=== PATIENT | female | born 1940 | race Caucasian/White ===

== ENCOUNTER 2019-01-28 09:19 | Inpatient (IN) | payer MEDICARE, OTHER ==
--- NOTE | 2019-01-28 09:24 | EDM.PDOC ---
ED HPI GENERAL MEDICAL PROBLEM - General Stated Complaint: SOB Time Seen by Provider: 01/28/19 09:23 Source of Information: Reports: Patient - History of Present Illness INITIAL COMMENTS - FREE TEXT/NARRATIVE: HISTORY AND PHYSICAL: History of present illness: [Patient presents to emergency room by private vehicle with chief complaint of shortness of breath ]Patient is as shortness of breath increasing in severity over the last 2-3 days , states that she is somewhat short of breath at baseline however it has been increasing she is in no distress no diaphoresis no chest pain headache dizziness or palpitation no bowel or urine symptoms Review of systems: As per history of present illness and below otherwise all systems reviewed and negative. Past medical history: As per history of present illness and as reviewed below otherwise noncontributory. Surgical history: As per history of present illness and as reviewed below otherwise noncontributory. Social history: No reported history of drug or alcohol abuse. Family history: As per history of present illness and as reviewed below otherwise noncontributory. Physical exam: HEENT: Atraumatic, normocephalic, pupils reactive, negative for conjunctival pallor or scleral icterus, mucous membranes moist, throat clear, neck supple, nontender, trachea midline. Lungs: Clear to auscultation, breath sounds equal bilaterally in the upper lobes however right lower lobe as decreased breath sounds and fine crackle, chest nontender. Heart: S1S2, regular, negative for clicks, rubs, or JVD. Abdomen: Soft, nondistended, nontender. Negative for masses or hepatosplenomegaly. Negative for costovertebral tenderness. Pelvis: Stable nontender. Genitourinary: Deferred. Rectal: Deferred. Extremities: Atraumatic, negative for cords or calf pain. Neurovascular unremarkable. Neuro: Awake, alert, oriented. Cranial nerves II through XII unremarkable. Cerebellum unremarkable. Motor and sensory unremarkable throughout. Exam nonfocal. Diagnostics: [CBC CMP troponin BN peptide Chest 1 view EKG ] Therapeutics: [ normal saline DuoNeb Solu-Medrol 125 mg IV Aspirin 324 mg chewable lasix 40 mg IV 1 g Rocephin IV Azithromycin 500 mg IV Patient admitted to Dr. Carmichael ] Impression: Hypoxia Right lower lobe pneumonia Moderate right effusion [ short of breath ] Definitive disposition and diagnosis as appropriate pending reevaluation and review of above. - Related Data Allergies Allergy/AdvReac Type Severity Reaction Status Date / Time No Known Allergies Allergy Verified 01/28/19 09:24 Home Meds: Home Meds Allopurinol [Zyloprim] 100 mg PO DAILY 01/28/19 [History] Aspirin 81 mg PO DAILY 01/28/19 [History] Blood Sugar Diagnostic [Onetouch Ultra Blue Test Strp] 1 dose TOP ASDIRECTED [History] Calcium Carbonate/Vitamin D3 [Calcium 1,000 + D3 Caplet] 1 tab PO DAILY [History] Furosemide [Lasix] 40 mg PO BID 01/28/19 [History] Glimepiride [Amaryl] 2 mg PO DAILY 01/28/19 [History] Levothyroxine Sodium 88 mcg PO DAILY 01/28/19 [History] Lisinopril 10 mg PO DAILY 01/28/19 [History] Lovastatin 100 mg PO DAILY 01/28/19 [History] Multivit-Min/FA/Lycopene/Lut [Abc Plus Tablet] 1 tab PO DAILY 01/28/19 [History] ED ROS GENERAL - Review of Systems Review Of Systems: See Below ED EXAM, GENERAL - Physical Exam Exam: See Below Course - Vital Signs Last Recorded V/S: Last Vital Signs Temp 96.3 F 01/28/19 09:25 Pulse 107 H 01/28/19 09:25 Resp 22 H 01/28/19 09:25 BP 152/88 H 01/28/19 09:25 Pulse Ox 94 L 01/28/19 09:30 - Orders/Labs/Meds Orders: Active Orders 24 hr Category Date Time Status EKG Documentation Completion [RC] STAT Care 01/28/19 09:22 Active RT Aerosol Therapy [RC] ASDIRECTED Care 01/28/19 09:30 Active UA RFX VANE AND CULT IF INDIC [URIN] Stat Lab 01/28/19 09:22 Ordered Azithromycin [Zithromax] 500 mg Med 01/28/19 11:07 Ordered Sodium Chloride 0.9% [Normal Saline] 250 ml IV ONETIME Sodium Chloride 0.9% [Normal Saline] 1,000 ml Med 01/28/19 09:30 Active IV STAT cefTRIAXone [Rocephin] Med 01/28/19 11:07 Once 1 gm IM ONETIME ONE Medication Orders Sodium Chloride (Normal Saline) 1,000 mls @ 125 mls/hr IV STAT GLORIA Last Admin: 01/28/19 09:39 Dose: 125 mls/hr Labs: Laboratory Tests 01/28/19 01/28/19 01/28/19 Range/Units 09:30 09:30 09:30 WBC 13.91 H (4.0-11.0) K/uL RBC 6.57 H (4.30-5.90) M/uL Hgb 19.2 H (12.0-16.0) g/dL Hct 58.5 H (36.0-46.0) % MCV 89.0 (80.0-98.0) fL MCH 29.2 (27.0-32.0) pg MCHC 32.8 (31.0-37.0) g/dL RDW Std Deviation 58.0 (28.0-62.0) fl RDW Coeff of Kelsey 19 H (11.0-15.0) % Plt Count 218 (150-400) K/uL MPV 9.40 (7.40-12.00) fL Neut % (Auto) 76.4 (48.0-80.0) % Lymph % (Auto) 14.5 L (16.0-40.0) % [place] % (Auto) 8.4 (0.0-15.0) % Eos % (Auto) 0.5 (0.0-7.0) % Baso % (Auto) 0.2 (0.0-1.5) % Neut # (Auto) 10.6 H (1.4-5.7) K/uL Lymph # (Auto) 2.0 (0.6-2.4) K/uL [place] # (Auto) 1.2 H (0.0-0.8) K/uL Eos # (Auto) 0.1 (0.0-0.7) K/uL Baso # (Auto) 0.0 (0.0-0.1) K/uL Nucleated RBC % 0.0 /100WBC Nucleated RBCs # 0 K/uL INR 2.14 Sodium 133 L (136-145) mmol/L Potassium 4.9 (3.5-5.1) mmol/L Chloride 95 L (98-107) mmol/L Carbon Dioxide 27.2 (21.0-32.0) mmol/L BUN 33 H (7.0-18.0) mg/dL Creatinine 1.9 H (0.6-1.0) mg/dL Est Cr Clr Drug Dosing 21.96 mL/min Estimated GFR (MDRD) 25.6 ml/min Glucose 89 (74-106) mg/dL Calcium 9.6 (8.5-10.1) mg/dL Total Bilirubin 1.3 H (0.2-1.0) mg/dL AST 41 H (15-37) IU/L ALT 36 (14-63) IU/L Alkaline Phosphatase 99 (46-116) U/L Troponin I < 0.050 (0.000-0.056) ng/mL B-Natriuretic Peptide (<100) PG/ML Total Protein 7.2 (6.4-8.2) g/dL Albumin 3.2 L (3.4-5.0) g/dL Globulin 4.0 (2.6-4.0) g/dL Albumin/Globulin Ratio 0.8 L (0.9-1.6) 01/28/19 Range/Units 09:30 WBC (4.0-11.0) K/uL RBC (4.30-5.90) M/uL Hgb (12.0-16.0) g/dL Hct (36.0-46.0) % MCV (80.0-98.0) fL MCH (27.0-32.0) pg MCHC (31.0-37.0) g/dL RDW Std Deviation (28.0-62.0) fl RDW Coeff of Kelsey (11.0-15.0) % Plt Count (150-400) K/uL MPV (7.40-12.00) fL Neut % (Auto) (48.0-80.0) % Lymph % (Auto) (16.0-40.0) % [place] % (Auto) (0.0-15.0) % Eos % (Auto) (0.0-7.0) % Baso % (Auto) (0.0-1.5) % Neut # (Auto) (1.4-5.7) K/uL Lymph # (Auto) (0.6-2.4) K/uL [place] # (Auto) (0.0-0.8) K/uL Eos # (Auto) (0.0-0.7) K/uL Baso # (Auto) (0.0-0.1) K/uL Nucleated RBC % /100WBC Nucleated RBCs # K/uL INR Sodium (136-145) mmol/L Potassium (3.5-5.1) mmol/L Chloride (98-107) mmol/L Carbon Dioxide (21.0-32.0) mmol/L BUN (7.0-18.0) mg/dL Creatinine (0.6-1.0) mg/dL Est Cr Clr Drug Dosing mL/min Estimated GFR (MDRD) ml/min Glucose (74-106) mg/dL Calcium (8.5-10.1) mg/dL Total Bilirubin (0.2-1.0) mg/dL AST (15-37) IU/L ALT (14-63) IU/L Alkaline Phosphatase (46-116) U/L Troponin I (0.000-0.056) ng/mL B-Natriuretic Peptide 361 H (<100) PG/ML Total Protein (6.4-8.2) g/dL Albumin (3.4-5.0) g/dL Globulin (2.6-4.0) g/dL Albumin/Globulin Ratio (0.9-1.6) Meds: Medications Generic Name Dose Route Start Last Admin Trade Name Freq PRN Reason Stop Dose Admin Sodium Chloride 1,000 mls @ 125 mls/hr 01/28/19 09:30 01/28/19 09:39 Normal Saline IV 125 mls/hr STAT GLORIA Administration Discontinued Medications Generic Name Dose Route Start Last Admin Trade Name Freq PRN Reason Stop Dose Admin Albuterol/Ipratropium 3 ml 01/28/19 09:29 01/28/19 09:41 Duoneb 3.0-0.5 Mg/3 Ml NEB 01/28/19 09:30 3 ml ONETIME ONE Administration Aspirin 324 mg 01/28/19 09:29 01/28/19 09:40 Aspirin PO 01/28/19 09:30 324 mg ONETIME ONE Administration Furosemide 40 mg 01/28/19 09:32 Lasix IVPUSH 01/28/19 09:33 NOW ONE Furosemide 20 mg 01/28/19 09:35 01/28/19 09:52 Lasix IVPUSH 01/28/19 09:36 20 mg NOW ONE Administration Methylprednisolone Sodium Succinate 125 mg 01/28/19 09:29 01/28/19 09:42 Solu-Medrol IVPUSH 01/28/19 09:30 125 mg ONETIME ONE Administration Departure - Departure Time of Disposition: 11:09 Disposition: Admitted As Inpatient 66 Condition: Fair Clinical Impression: Pneumonia, Pleural effusion, Hypoxia - Discharge Information Referrals: Yony Conklin MD [Primary Care Provider] - - My Orders Last 24 Hours: My Active Orders 01/28/19 09:22 EKG Documentation Completion [RC] STAT UA RFX VANE AND CULT IF INDIC [URIN] Stat 01/28/19 09:30 RT Aerosol Therapy [RC] ASDIRECTED Sodium Chloride 0.9% [Normal Saline] 1,000 ml IV STAT 01/28/19 11:07 Azithromycin [Zithromax] 500 mg Sodium Chloride 0.9% [Normal Saline] 250 ml IV ONETIME cefTRIAXone [Rocephin] 1 gm IM ONETIME ONE - Assessment/Plan Last 24 Hours: My Active Orders 01/28/19 09:22 EKG Documentation Completion [RC] STAT UA RFX VANE AND CULT IF INDIC [URIN] Stat 01/28/19 09:30 RT Aerosol Therapy [RC] ASDIRECTED Sodium Chloride 0.9% [Normal Saline] 1,000 ml IV STAT 01/28/19 11:07 Azithromycin [Zithromax] 500 mg Sodium Chloride 0.9% [Normal Saline] 250 ml IV ONETIME cefTRIAXone [Rocephin] 1 gm IM ONETIME ONE
[2019-01-28] MEDS ORDERED: methylPREDNISolone Sodium Succinate 125 MG/2 ML SDV IVPUSH ONE (09:29)
[2019-01-28] MEDS ORDERED: Aspirin 81 MG Tab.Chew PO ONE (09:29)
[2019-01-28] MEDS ORDERED: Albuterol/Ipratropium 3.0-0.5 MG/3 ML Neb Soln NEB ONE (09:29)
[2019-01-28] MEDS ORDERED: Sodium Chloride 0.9% 1,000 ML IV SCH (09:30)
[2019-01-28] MEDS ORDERED: Furosemide 40 MG/4 ML VIAL IVPUSH ONE ×3 (09:32→11:59)
[2019-01-28 10:16] LABS: CHLORIDE,CL 95 mmol/L (98-107); SODIUM,NA 133 mmol/L (136-145)
--- NOTE | 2019-01-28 10:22 | CR ---
EXAMINATION: Portable chest radiograph. HISTORY: Shortness of breath. FINDINGS: The trachea is midline. The heart is borderline in size for technique. The cardiomediastinal silhouette is within normal limits. There is a small to moderate right pleural effusion with adjacent atelectasis and/or infiltrate. No pneumothorax. Osseous structures appear unremarkable. IMPRESSION: 1. Small to moderate right pleural effusion.
[2019-01-28] MEDS ORDERED: Azithromycin 500 MG in Sodium Chloride 0.9% 250 ML IV ONE ×2 (11:07→11:31)
[2019-01-28] MEDS ORDERED: cefTRIAXone 1 GM Vial IM ONE (11:07)
--- NOTE | 2019-01-28 11:56 | PCM.HP ---
H&P History of Present Illness - General Date of Service: 01/28/19 Admit Problem/Dx: Admission Diagnosis/Problem Admission Diagnosis/Problem Pneumonia - History of Present Illness Initial Comments - Free Text/Narative: The patient is a 78-year-old female presented to the ER with shortness of breath for the past few days. She denies any history of asthma, COPD, CHF, clots. She also notes increased swelling in her feet. She says she usually has baseline swelling in her feet for which she takes Lasix, but it's gotten worse over the past few days. She denies orthopnea, cough, fever, chest pain, nausea, vomiting. In the ER, labs showed an elevated white count, elevated creatinine a BNP of 361, and negative troponin. A chest x-ray showed small to moderate pleural effusion on the right with adjacent atelectasis and/or infiltrate. In the ER, she was satting 68% on RA and improved to 94% on 10L nonrebreather. In the ER she was given full dose aspirin, DuoNeb treatment, azithromycin, Rocephin 20 of Lasix dose of Solu-Medrol and started on IV fluids. - Related Data Allergies/Adverse Reactions: Allergies Allergy/AdvReac Type Severity Reaction Status Date / Time No Known Allergies Allergy Verified 01/28/19 09:24 Home Medications: Home Meds Allopurinol [Zyloprim] 100 mg PO DAILY 01/28/19 [History] Ascorbic Acid [Vitamin C with Elicia Hips] 1,000 mg PO BEDTIME 01/28/19 [History] Aspirin 81 mg PO DAILY 01/28/19 [History] Blood Sugar Diagnostic [Onetouch Ultra Blue Test Strp] 1 dose TOP ASDIRECTED [History] Calcium Carbonate/Vitamin D3 [Calcium 1,000 + D3 Caplet] 1 tab PO DAILY [History] Furosemide [Lasix] 40 mg PO BID 01/28/19 [History] Glimepiride [Amaryl] 2 mg PO BID 01/28/19 [History] Levothyroxine Sodium 88 mcg PO DAILY 01/28/19 [History] Lisinopril 10 mg PO DAILY 01/28/19 [History] Lovastatin 40 mg PO BEDTIME 01/28/19 [History] Multivit-Min/FA/Lycopene/Lut [Abc Plus Tablet] 1 tab PO DAILY 01/28/19 [History] Patient's Own Medication [Ptom] 1 cap PO DAILY 01/28/19 [History] Patient's Own Medication [Ptom] 2 cap PO BEDTIME 01/28/19 [History] Past Medical History HEENT History: Reports: Cataract Cardiovascular History: Reports: High Cholesterol, Hypertension Respiratory History: Reports: None Gastrointestinal History: Reports: None Genitourinary History: Reports: UTI, Recurrent, Other (See Below) Other Genitourinary History: Decreased GF, asymptomatic hyperuricemia [employer] History: Reports: None Musculoskeletal History: Reports: None Neurological History: Reports: None Psychiatric History: Reports: None Endocrine/Metabolic History: Reports: Diabetes, Type II, Hypothyroidism, Obesity /BMI 30+, Other (See Below) Other Endocrine/Metabolic History: Dyslipidemia Hematologic History: Reports: None Immunologic History: Reports: None Oncologic (Cancer) History: Reports: None Dermatologic History: Reports: Other (See Below) Other Dermatologic History: venous insufficiency of both lower extremities, stasis dermatitis of both legs, pre-ulcerative corn or callous, peripheral edema , artierial insufficency - Past Surgical History Head Surgeries/Procedures: Reports: None HEENT Surgical History: Reports: Tonsillectomy Cardiovascular Surgical History: Reports: None Respiratory Surgical History: Reports: None GI Surgical History: Reports: Appendectomy, Colonoscopy Female Surgical History: Reports: Breast Biopsy Endocrine Surgical History: Reports: None Neurological Surgical History: Reports: None Musculoskeletal Surgical History: Reports: None Oncologic Surgical History: Reports: None Dermatological Surgical History: Reports: None Social & Family History - Family History Family Medical History: Noncontributory - Tobacco Use Smoking Status *Q: Former Smoker Used Tobacco, but Quit: Yes Month/Year Tobacco Last Used: 2002 - Caffeine Use Caffeine Use: Reports: None - Recreational Drug Use Recreational Drug Use: No H&P Review of Systems - Review of Systems: Review Of Systems: See Below General: Reports: Decreased Appetite. Denies: Fever, Chills HEENT: Reports: No Symptoms Pulmonary: Reports: Shortness of Breath. Denies: Cough Cardiovascular: Reports: Edema. Denies: Chest Pain, Palpitations, Orthopnea Gastrointestinal: Reports: No Symptoms Genitourinary: Reports: No Symptoms Musculoskeletal: Reports: No Symptoms Skin: Reports: No Symptoms Psychiatric: Reports: No Symptoms Neurological: Reports: No Symptoms Hematologic/Lymphatic: Reports: No Symptoms Immunologic: Reports: No Symptoms Exam - Exam Exam: See Below - Vital Signs Vital Signs: Last Vital Signs Temp 96.3 F 01/28/19 09:25 Pulse 107 H 01/28/19 09:25 Resp 22 H 01/28/19 09:25 BP 152/88 H 01/28/19 09:25 Pulse Ox 94 L 01/28/19 09:30 Weight: 111.5 kg - Exam Quality Assessment: Supplemental Oxygen General: Alert, Oriented, Cooperative HEENT: Conjunctiva Clear, EOMI, Posterior Pharynx Clear, Pupils Equal, Pupils Reactive Neck: Supple, Trachea Midline Lungs: Decreased Breath Sounds. No: Crackles, Wheezing Cardiovascular: Regular Rhythm, Tachycardia GI/Abdominal Exam: Normal Bowel Sounds, Soft, Non-Tender, No Distention Extremities: Pedal Edema (with erythema) Skin: Warm, Dry Neuro Extensive - Mental Status: Alert, Oriented x3 Psychiatric: Alert, Normal Affect, Normal Mood - Patient Data Lab Results Last 24 hrs: Laboratory Results - last 24 hr 01/28/19 01/28/19 01/28/19 Range/Units 09:30 09:30 09:30 WBC 13.91 H (4.0-11.0) K/uL RBC 6.57 H (4.30-5.90) M/uL Hgb 19.2 H (12.0-16.0) g/dL Hct 58.5 H (36.0-46.0) % MCV 89.0 (80.0-98.0) fL MCH 29.2 (27.0-32.0) pg MCHC 32.8 (31.0-37.0) g/dL RDW Std Deviation 58.0 (28.0-62.0) fl RDW Coeff of Kelsey 19 H (11.0-15.0) % Plt Count 218 (150-400) K/uL MPV 9.40 (7.40-12.00) fL Neut % (Auto) 76.4 (48.0-80.0) % Lymph % (Auto) 14.5 L (16.0-40.0) % [place] % (Auto) 8.4 (0.0-15.0) % Eos % (Auto) 0.5 (0.0-7.0) % Baso % (Auto) 0.2 (0.0-1.5) % Neut # (Auto) 10.6 H (1.4-5.7) K/uL Lymph # (Auto) 2.0 (0.6-2.4) K/uL [place] # (Auto) 1.2 H (0.0-0.8) K/uL Eos # (Auto) 0.1 (0.0-0.7) K/uL Baso # (Auto) 0.0 (0.0-0.1) K/uL Nucleated RBC % 0.0 /100WBC Nucleated RBCs # 0 K/uL INR 2.14 Sodium 133 L (136-145) mmol/L Potassium 4.9 (3.5-5.1) mmol/L Chloride 95 L (98-107) mmol/L Carbon Dioxide 27.2 (21.0-32.0) mmol/L BUN 33 H (7.0-18.0) mg/dL Creatinine 1.9 H (0.6-1.0) mg/dL Est Cr Clr Drug Dosing 21.96 mL/min Estimated GFR (MDRD) 25.6 ml/min Glucose 89 (74-106) mg/dL Calcium 9.6 (8.5-10.1) mg/dL Total Bilirubin 1.3 H (0.2-1.0) mg/dL AST 41 H (15-37) IU/L ALT 36 (14-63) IU/L Alkaline Phosphatase 99 (46-116) U/L Troponin I < 0.050 (0.000-0.056) ng/mL B-Natriuretic Peptide (<100) PG/ML Total Protein 7.2 (6.4-8.2) g/dL Albumin 3.2 L (3.4-5.0) g/dL Globulin 4.0 (2.6-4.0) g/dL Albumin/Globulin Ratio 0.8 L (0.9-1.6) 01/28/19 Range/Units 09:30 WBC (4.0-11.0) K/uL RBC (4.30-5.90) M/uL Hgb (12.0-16.0) g/dL Hct (36.0-46.0) % MCV (80.0-98.0) fL MCH (27.0-32.0) pg MCHC (31.0-37.0) g/dL RDW Std Deviation (28.0-62.0) fl RDW Coeff of Kelsey (11.0-15.0) % Plt Count (150-400) K/uL MPV (7.40-12.00) fL Neut % (Auto) (48.0-80.0) % Lymph % (Auto) (16.0-40.0) % [place] % (Auto) (0.0-15.0) % Eos % (Auto) (0.0-7.0) % Baso % (Auto) (0.0-1.5) % Neut # (Auto) (1.4-5.7) K/uL Lymph # (Auto) (0.6-2.4) K/uL [place] # (Auto) (0.0-0.8) K/uL Eos # (Auto) (0.0-0.7) K/uL Baso # (Auto) (0.0-0.1) K/uL Nucleated RBC % /100WBC Nucleated RBCs # K/uL INR Sodium (136-145) mmol/L Potassium (3.5-5.1) mmol/L Chloride (98-107) mmol/L Carbon Dioxide (21.0-32.0) mmol/L BUN (7.0-18.0) mg/dL Creatinine (0.6-1.0) mg/dL Est Cr Clr Drug Dosing mL/min Estimated GFR (MDRD) ml/min Glucose (74-106) mg/dL Calcium (8.5-10.1) mg/dL Total Bilirubin (0.2-1.0) mg/dL AST (15-37) IU/L ALT (14-63) IU/L Alkaline Phosphatase (46-116) U/L Troponin I (0.000-0.056) ng/mL B-Natriuretic Peptide 361 H (<100) PG/ML Total Protein (6.4-8.2) g/dL Albumin (3.4-5.0) g/dL Globulin (2.6-4.0) g/dL Albumin/Globulin Ratio (0.9-1.6) Result Diagrams: 01/28/19 09:30 01/28/19 09:30 Problem List Initiated/Reviewed/Updated: Yes Orders Last 24hrs: Active Orders 24 hr Category Date Time Status Admission Status [Patient Status] [ADT] Stat ADT 01/28/19 11:10 Active EKG Documentation Completion [RC] STAT Care 01/28/19 09:22 Active RT Aerosol Therapy [RC] ASDIRECTED Care 01/28/19 09:30 Active UA RFX VANE AND CULT IF INDIC [URIN] Stat Lab 01/28/19 09:22 Ordered Azithromycin [Zithromax] 500 mg Med 01/28/19 11:31 Active Sodium Chloride 0.9% [Normal Saline] 250 ml IV ONETIME Sodium Chloride 0.9% [Normal Saline] 1,000 ml Med 01/28/19 09:30 Active IV STAT Medication Orders Sodium Chloride (Normal Saline) 1,000 mls @ 125 mls/hr IV STAT GLORIA Last Admin: 01/28/19 09:39 Dose: 125 mls/hr Azithromycin 500 mg/ Sodium (Chloride) 250 mls @ 250 mls/hr IV ONETIME ONE Stop: 01/28/19 12:06 Last Admin: 01/28/19 11:43 Dose: 250 mls/hr Assessment/Plan Comment:: 1. Admit to ICU 2. Code status- full 3. Vitals per routine 4. I/Os strict 5. Diet- diabetic 6. DVT prophylaxis with Lovenox renally dosed 7. Acute hypoxic respiratory failure secondary to possible CHF exacerbation vs pneumonia- We will get a CT of the chest without contrast due to kidney function to hopefully help delineate pleural effusion vs infiltrate. If enough of a pleural effusion, possibly speak to radiology about a thoracentesis. Continue on Rocephin and azithromycin for possible pneumonia and get a sputum culture. Will give IV lasix and get an echo. PE less likely, her Wells score is 1.5 (points for tachycardia), can re-address if no improvement with current plan. 8. Peripheral edema- possibly related to undiagnosed CHF- she is getting an echo and will get IV lasix but we will rule out DVT with US dopplers of the extremities. 9. RAGHU- monitor- hold fluids due to possible fluid overload. Recheck in AM. 10. Chronic Conditions- HTN, hypothyroidism, DMII, hyperlipidemia- will continue home meds except we will place her on accuchecks and sliding scale for DMII.
[2019-01-28] MEDS ORDERED: Azithromycin 500 MG Vial IV SCH (12:00)
[2019-01-28] MEDS ORDERED: Heparin Sodium 5,000 Units/ML Vial SUBCUT SCH (14:00)
--- NOTE | 2019-01-28 14:36 | CT ---
EXAMINATION: CT chest without contrast HISTORY: Shortness of breath COMPARISON: 01/28/2019 TECHNIQUE: Axial CT imaging obtained through the chest without contrast. Coronal and sagittal reconstructions obtained. FINDINGS: There is a small to moderate right pleural effusion. There is adjacent atelectasis. Trace left pleural effusion is also noted. The heart is borderline in size without a pericardial effusion. Thoracic aorta is normal in caliber. Pulmonary arteries are mildly prominent. Mild aortic annular and coronary artery calcifications. No mediastinal or axillary lymphadenopathy. No hilar fullness. Central airways are clear. Visualized images of the abdomen demonstrates a mildly nodular appearing liver. There is mild generalized anasarca as well. No suspicious osseous abnormalities identified. IMPRESSION: 1. Small to moderate right and trace left pleural effusions. 2. The heart is borderline in size. 3. Mildly prominent pulmonary arteries suggesting pulmonary artery hypertension. 4. Small amount of abdominal ascites and generalized anasarca.
--- NOTE | 2019-01-28 15:53 | US ---
ULTRASOUND EXAMINATION OF the left and right lower extremities WITH DOPPLER HISTORY: Shortness of breath FINDINGS: Examination of the left and right lower legs were performed from the groin to the calf region. All visualized segments including common femoral, proximal greater saphenous, superficial femoral, popliteal and calf veins appear patent with good compressibility and augmentation. There is no evidence of deep vein thrombosis. IMPRESSION: No evidence of a DVT.
[2019-01-28] MEDS ORDERED: Albuterol/Ipratropium 3.0-0.5 MG/3 ML Neb Soln NEB PRN (16:20)
[2019-01-28] MEDS ORDERED: Insulin Aspart 100 Units/ML 3 ML Pen SUBCUT SCH (17:00)
--- NOTE | 2019-01-28 18:29 | PCM.SN ---
- Free Text/Narrative Note: Throughout the day the patient was requiring between 10-15 L of oxygen to keep her o2 sat above 90%. Despite 60 mg of IV lasix, her urine output was only [address] scan of the chest showed sm-mod pleural effusion, heart borderline in size, mildly prominent pulmonary arteries suggesting pulmonary artery HTN, and small amount of abdominal ascites with generalized anasarca. I spoke to Dr. Capone, radiology, about possible thoracentesis, and he stated it could probably be done but it may not yield enough for symptomatic improvement. I spoke to eICU, Dr Zavala, who was concerned about her polycythemia, she recommended repeat hemoglobin which showed mild improvement from 19.[address] Zavala recommended transferring the patient where we had heme/onc available to manage her polycythemia and where nephrology is available. She believed that if we diuresed her anymore, her kidneys would get much worse. I discussed transfer with the patient who was open. I discussed the case with Dr. Deluca, ER provider at [facility] in [place], who accepted transfer at [id number]. Patient will need to be transferred with bipap. [facility] ambulance is unable to take patient's on bipap so she will go air ambulance.
[2019-01-29] MEDS ORDERED: Lisinopril 10 MG Tab PO SCH (09:00)
[2019-01-29] MEDS ORDERED: Aspirin 81 MG Tab.Chew PO SCH (09:00)
[2019-01-29] MEDS ORDERED: Allopurinol 100 MG Tab PO SCH (09:00)
[2019-01-29] MEDS ORDERED: Levothyroxine 88 MCG Tab PO SCH (09:00)
[2019-01-29] MEDS ORDERED: Azithromycin 250 MG in Sodium Chloride 0.9% 250 ML IV SCH (12:00)
[2019-01-29] MEDS ORDERED: cefTRIAXone 1 GM in Premix Bag 1 BAG IV SCH (12:00)
== END 2019-01-28 19:40 | DRG 291 ==
LOC: MW.ED 09:19 → MW.ICU 11:37
PROVIDERS: ADMIT Internal Medicine; ATTEND Internal Medicine
DX: I11.0 Hypertensive heart disease with heart failure (principal); R06.02 Shortness of breath; R09.02 Hypoxemia; J90 Pleural effusion, not elsewhere classified; J18.1 Lobar pneumonia, unspecified organism; J96.01 Acute respiratory failure with hypoxia; Z68.41 Body mass index [BMI] 40.0-44.9, adult; N17.9 Acute kidney failure, unspecified; I73.9 Peripheral vascular disease, unspecified; I27.21 Secondary pulmonary arterial hypertension; D75.1 Secondary polycythemia; I50.9 Heart failure, unspecified; E78.00 Pure hypercholesterolemia, unspecified; E11.9 Type 2 diabetes mellitus without complications; E03.9 Hypothyroidism, unspecified; E66.9 Obesity, unspecified; E78.5 Hyperlipidemia, unspecified; I87.2 Venous insufficiency (chronic) (peripheral); Z79.82 Long term (current) use of aspirin; Z79.890 Hormone replacement therapy; Z79.899 Other long term (current) drug therapy; Z87.440 Personal history of urinary (tract) infections; Z87.891 Personal history of nicotine dependence
CPT/HCPCS: 36415; 71045; 80053; 83880; 84484; 85025; 85610; 93005; 94640; 96361; 96375; 99285; A9270; J1940; J2930; J7040; 71250; 71250-26; 81001; 82962; 85730; 87040; 87086; 93306; 93970; 93970-26; 96365; 96372; J0456; J0696; J1644; J7050; J7620-GY

== ENCOUNTER 2019-07-08 23:01 | Emergency (ER) | payer MEDICARE, OTHER ==
[2019-07-08] MEDS ORDERED: Sodium Chloride 0.9% 1,000 ML IV ONE (23:06)
[2019-07-08] MEDS ORDERED: Albuterol/Ipratropium 3.0-0.5 MG/3 ML Neb Soln NEB ONE (23:07)
[2019-07-08] MEDS ORDERED: Piperacillin/Tazobactam 3.375 GM in Sodium Chloride 0.9% 50 ML IV ONE (23:16)
--- NOTE | 2019-07-08 23:38 | EDM.PDOC ---
ED HPI GENERAL MEDICAL PROBLEM - General Chief Complaint: Respiratory Problem Stated Complaint: CHEST PAINS AND SHORTNESS OF BREATH Time Seen by Provider: 07/08/19 23:08 - History of Present Illness INITIAL COMMENTS - FREE TEXT/NARRATIVE: HISTORY AND PHYSICAL: History of present illness: Patient 78-year-old female with past medical history significant for COPD and CHF who presents with generalized weakness shortness of breath after an episode at home where she was returning from the bathroom felt weak and collapsed by the bed she denies loss consciousness and no reported chest pain on arrival here she's hypotensive dyspneic and reports that she had recently been treated for UTI and had subsequent recurrence. Patient denies abdominal pain Review of systems: As per history of present illness and below otherwise all systems reviewed and negative. Past medical history: As per history of present illness and as reviewed below otherwise noncontributory. Surgical history: As per history of present illness and as reviewed below otherwise noncontributory. Social history: No reported history of drug or alcohol abuse. Family history: As per history of present illness and as reviewed below otherwise noncontributory. Physical exam: HEENT: Atraumatic, normocephalic, pupils reactive, negative for conjunctival pallor or scleral icterus, mucous membranes dry, throat clear, neck supple, nontender, trachea midline. Lungs: Diminished course breath sounds equal bilaterally, chest nontender. Heart: S1S2, regular, negative for clicks, rubs, or JVD. Abdomen: Soft, nondistended, nontender. Negative for masses or hepatosplenomegaly. Negative for costovertebral tenderness. Pelvis: Stable nontender. Genitourinary: Deferred. Rectal: Deferred. Extremities: Atraumatic, negative for cords or calf pain. Neurovascular unremarkable. Neuro: Awake, alert, follows commands moves all extremities limited grossly nonfocal exam. Diagnostics: CBC CMP troponin PT/INR chest x-ray EKG blood culture 2 lactic acid UA urine culture and sensitivity Therapeutics: Saline 1 L bolus norepinephrine drip 8 mcg/m Zosyn 3.375 g IV vancomycin 1 g IV Impression: Sepsis Definitive disposition and diagnosis as appropriate pending reevaluation and review of above. Treatments ENERGY OPERATIONS VICE PRESIDENT: Reports: IV/IO, Oxygen - Related Data Allergies Allergy/AdvReac Type Severity Reaction Status Date / Time No Known Allergies Allergy Verified 07/08/19 23:05 Home Meds: Home Meds Allopurinol [Zyloprim] 100 mg PO DAILY 01/28/19 [History] Ascorbic Acid [Vitamin C with Elicia Hips] 1,000 mg PO BEDTIME 01/28/19 [History] Aspirin 81 mg PO DAILY 01/28/19 [History] Blood Sugar Diagnostic [Onetouch Ultra Blue Test Strp] 1 dose TOP ASDIRECTED [History] Calcium Carbonate/Vitamin D3 [Calcium 1,000 + D3 Caplet] 1 tab PO DAILY [History] Furosemide [Lasix] 40 mg PO BID 01/28/19 [History] Glimepiride [Amaryl] 2 mg PO BID 01/28/19 [History] Levothyroxine Sodium 88 mcg PO DAILY 01/28/19 [History] Lisinopril 10 mg PO DAILY 01/28/19 [History] Lovastatin 40 mg PO BEDTIME 01/28/19 [History] Multivit-Min/FA/Lycopene/Lut [Abc Plus Tablet] 1 tab PO DAILY 01/28/19 [History] Patient's Own Medication [Ptom] 1 cap PO DAILY 01/28/19 [History] Patient's Own Medication [Ptom] 2 cap PO BEDTIME 01/28/19 [History] Past Medical History HEENT History: Reports: Cataract Cardiovascular History: Reports: High Cholesterol, Hypertension Respiratory History: Reports: None Gastrointestinal History: Reports: None Genitourinary History: Reports: UTI, Recurrent, Other (See Below) Other Genitourinary History: Decreased GF, asymptomatic hyperuricemia BACK END ARCHITECT History: Reports: None Musculoskeletal History: Reports: None Neurological History: Reports: None Psychiatric History: Reports: None Endocrine/Metabolic History: Reports: Diabetes, Type II, Hypothyroidism, Obesity /BMI 30+, Other (See Below) Other Endocrine/Metabolic History: Dyslipidemia Hematologic History: Reports: None Immunologic History: Reports: None Oncologic (Cancer) History: Reports: None Dermatologic History: Reports: Other (See Below) Other Dermatologic History: venous insufficiency of both lower extremities, stasis dermatitis of both legs, pre-ulcerative corn or callous, peripheral edema , artierial insufficency - Past Surgical History Head Surgeries/Procedures: Reports: None HEENT Surgical History: Reports: Tonsillectomy Cardiovascular Surgical History: Reports: None Respiratory Surgical History: Reports: None GI Surgical History: Reports: Appendectomy, Colonoscopy Female Surgical History: Reports: Breast Biopsy Endocrine Surgical History: Reports: None Neurological Surgical History: Reports: None Musculoskeletal Surgical History: Reports: None Oncologic Surgical History: Reports: None Dermatological Surgical History: Reports: None Social & Family History - Family History Family Medical History: Noncontributory - Caffeine Use Caffeine Use: Reports: None ED ROS GENERAL - Review of Systems Review Of Systems: ROS reveals no pertinent complaints other than HPI. ED EXAM, GENERAL - Physical Exam Exam: See Below (See dictation) Course - Vital Signs Last Recorded V/S: Last Vital Signs Temp 37.4 C 07/08/19 23:01 Pulse 110 H 07/08/19 23:25 Resp 24 H 07/08/19 23:25 BP 80/46 L 07/08/19 23:25 Pulse Ox 98 07/08/19 23:25 - Orders/Labs/Meds Orders: Active Orders 24 hr Category Date Time Status EKG Documentation Completion [RC] STAT Care 07/08/19 23:11 Active RT Aerosol Therapy [RC] ASDIRECTED Care 07/08/19 23:07 Active Chest 1V Frontal [CR] Stat Exams 07/08/19 23:11 Taken B-TYPE NATRIURETIC PEPTIDE,BNP [CHEM] Stat Lab 07/08/19 23:20 Received CBC WITH AUTO DIFF [HEME] Stat Lab 07/08/19 23:20 Received COMPREHENSIVE METABOLIC PN,CMP [CHEM] Stat Lab 07/08/19 23:20 Received CULTURE BLOOD [BC] Stat Lab 07/08/19 23:15 Ordered CULTURE BLOOD [BC] Stat Lab 07/08/19 23:20 Received INR,PT,PROTHROMBIN TIME [COAG] Stat Lab 07/08/19 23:20 Received TROPONIN I [CHEM] Stat Lab 07/08/19 23:20 Received UA RFX VANE AND CULT IF INDIC [URIN] Stat Lab 07/08/19 23:14 Ordered Norepinephrine Bit/0.9 % NaCl [Norepinephr-0.9% NaCl 4 Med 07/08/19 23:30 Active mg/250] 4 mg in 250 ml IV TITRATE Piperacillin/Tazobactam [Piperacil-Tazobact] 3.375 gm Med 07/08/19 23:16 Active Sodium Chloride 0.9% [Normal Saline] 50 ml IV ONETIME Sodium Chloride 0.9% [Normal Saline] 1,000 ml Med 07/08/19 23:06 Active IV .Bolus Vancomycin 1 gm Med 07/08/19 23:17 Active Sodium Chloride 0.9% [Normal Saline (AdvBag)] 250 ml IV ONETIME Blood Culture x2 Reflex Set [OM.PC] Stat Oth 07/08/19 23:15 Ordered Medication Orders Sodium Chloride (Normal Saline) 1,000 mls @ 999 mls/hr IV .Bolus ONE Stop: 07/09/19 00:06 Last Admin: 07/08/19 23:21 Dose: 999 mls/hr Piperacillin Sod/Tazobactam (Sod 3.375 gm/ Sodium Chloride) 50 mls @ 100 mls/ hr IV ONETIME ONE Stop: 07/08/19 23:45 Last Admin: 07/08/19 23:27 Dose: 100 mls/hr Vancomycin HCl 1 gm/ Sodium (Chloride) 250 mls @ 166 mls/hr IV ONETIME ONE Stop: 07/09/19 00:47 Norepinephrine Bitartrate (Norepinephr-0.9% Nacl 4 Mg/250) 4 mg in 250 mls @ 30 mls/hr IV TITRATE GLORIA; Protocol Last Admin: 07/08/19 23:28 Dose: 8 mcg/min, 30 mls/hr Labs: Laboratory Tests 07/08/19 Range/Units 23:20 Lactate 6.5 H (0.20-2.00) mmol/L Meds: Medications Generic Name Dose Route Start Last Admin Trade Name Freq PRN Reason Stop Dose Admin Sodium Chloride 1,000 mls @ 999 mls/hr 07/08/19 23:06 07/08/19 23:21 Normal Saline IV 07/09/19 00:06 999 mls/hr .Bolus ONE Administration Piperacillin Sod/Tazobactam 50 mls @ 100 mls/hr 07/08/19 23:16 07/08/19 23:27 Sod 3.375 gm/ Sodium Chloride IV 07/08/19 23:45 100 mls/hr ONETIME ONE Administration Vancomycin HCl 1 gm/ Sodium 250 mls @ 166 mls/hr 07/08/19 23:17 Chloride IV 07/09/19 00:47 ONETIME ONE Norepinephrine Bitartrate 4 mg in 250 mls @ 30 mls/hr 07/08/19 23:30 23:28 Norepinephr-0.9% Nacl 4 Mg/250 IV 8 mcg/min TITRATE GLORIA 30 mls/hr Administration Protocol 8 MCG/MIN Discontinued Medications Generic Name Dose Route Start Last Admin Trade Name Conrado PRN Reason Stop Dose Admin Albuterol/Ipratropium 3 ml 07/08/19 23:07 07/08/19 23:20 Duoneb 3.0-0.5 Mg/3 Ml NEB 07/08/19 23:08 3 ml ONETIME ONE Administration Norepinephrine Bitartrate Confirm 07/08/19 23:26 Norepinephr-0.9% Nacl 4 Mg/250 Administered 07/08/19 23:27 Dose 4 mg in 250 mls @ as directed IV .STK-MED ONE Departure - Departure Time of Disposition: 23:37 Disposition: DC/Tfer to Acute Hospital 02 Condition: Critical Clinical Impression: Sepsis - Discharge Information Referrals: Yony Conklin MD [Primary Care Provider] - - My Orders Last 24 Hours: My Active Orders 07/08/19 23:06 Sodium Chloride 0.9% [Normal Saline] 1,000 ml IV .Bolus 07/08/19 23:07 RT Aerosol Therapy [RC] ASDIRECTED 07/08/19 23:11 EKG Documentation Completion [RC] STAT Chest 1V Frontal [CR] Stat 07/08/19 23:14 UA RFX VANE AND CULT IF INDIC [URIN] Stat 07/08/19 23:15 CULTURE BLOOD [BC] Stat Blood Culture x2 Reflex Set [OM.PC] Stat 07/08/19 23:16 Piperacillin/Tazobactam [Piperacil-Tazobact] 3.375 gm Sodium Chloride 0.9% [ Normal Saline] 50 ml IV ONETIME 07/08/19 23:17 Vancomycin 1 gm Sodium Chloride 0.9% [Normal Saline (AdvBag)] 250 ml IV ONETIME 07/08/19 23:20 B-TYPE NATRIURETIC PEPTIDE,BNP [CHEM] Stat CBC WITH AUTO DIFF [HEME] Stat COMPREHENSIVE METABOLIC PN,CMP [CHEM] Stat CULTURE BLOOD [BC] Stat INR,PT,PROTHROMBIN TIME [COAG] Stat TROPONIN I [CHEM] Stat 07/08/19 23:30 Norepinephrine Bit/0.9 % NaCl [Norepinephr-0.9% NaCl 4 mg/250] 4 mg in 250 ml IV TITRATE - Assessment/Plan Last 24 Hours: My Active Orders 07/08/19 23:06 Sodium Chloride 0.9% [Normal Saline] 1,000 ml IV .Bolus 07/08/19 23:07 RT Aerosol Therapy [RC] ASDIRECTED 07/08/19 23:11 EKG Documentation Completion [RC] STAT Chest 1V Frontal [CR] Stat 07/08/19 23:14 UA RFX VANE AND CULT IF INDIC [URIN] Stat 07/08/19 23:15 CULTURE BLOOD [BC] Stat Blood Culture x2 Reflex Set [OM.PC] Stat 07/08/19 23:16 Piperacillin/Tazobactam [Piperacil-Tazobact] 3.375 gm Sodium Chloride 0.9% [ Normal Saline] 50 ml IV ONETIME 07/08/19 23:17 Vancomycin 1 gm Sodium Chloride 0.9% [Normal Saline (AdvBag)] 250 ml IV ONETIME 07/08/19 23:20 B-TYPE NATRIURETIC PEPTIDE,BNP [CHEM] Stat CBC WITH AUTO DIFF [HEME] Stat COMPREHENSIVE METABOLIC PN,CMP [CHEM] Stat CULTURE BLOOD [BC] Stat INR,PT,PROTHROMBIN TIME [COAG] Stat TROPONIN I [CHEM] Stat 07/08/19 23:30 Norepinephrine Bit/0.9 % NaCl [Norepinephr-0.9% NaCl 4 mg/250] 4 mg in 250 ml IV TITRATE
--- NOTE | 2019-07-08 23:38 | CR ---
INDICATION: Shortness of breath, weakness. History of chronic obstructive pulmonary disease, congestive heart failure TECHNIQUE: Chest radiograph 1 view COMPARISON: 01/28/2019 FINDINGS: Mediastinum: The mediastinum is normal in appearance. The heart silhouette is normal in size and morphology. Lung: Mild bibasilar senescent fibrosis is present. No sign of pleural effusion seen. No pneumothorax is identified. IMPRESSION: 1. No acute cardiopulmonary disease is seen. Dictated by Pacheco Reed MD @ 07/08/2019 11:36:55 PM Dictated by: Pacheco Reed MD @ 07/08/2019 23:36:59 (Electronically Signed)
[2019-07-08 23:55] LABS: CHLORIDE,CL 100 mmol/L (98-107); SODIUM,NA 137 mmol/L (136-145)
== END 2019-07-09 00:05 ==
LOC: MW.ED 23:01
DX: A41.9 Sepsis, unspecified organism (principal); E78.00 Pure hypercholesterolemia, unspecified; I10 Essential (primary) hypertension; E11.9 Type 2 diabetes mellitus without complications; E03.9 Hypothyroidism, unspecified; Z79.899 Other long term (current) drug therapy; Z79.82 Long term (current) use of aspirin; Z79.84 Long term (current) use of oral hypoglycemic drugs
CPT/HCPCS: 36415; 71045; 80053; 81001; 83605; 83880; 84484; 85025; 85610; 87040; 93005; 94640; 96360; 96365; 96368; 99291; J2543; J3370; J7040; J7050; J7620-GY

== ENCOUNTER 2019-11-11 06:29 | Day surgery (SDC) | payer MEDICARE, OTHER ==
[2019-11-11] MEDS ORDERED: Midazolam 1 MG/ML 2 ML SDV ONE (07:04)
[2019-11-11] MEDS ORDERED: Propofol 200 MG/20 ML SDV ONE (07:04)
[2019-11-11] MEDS ORDERED: Bupivacaine 0.5% 30 ML SDV ONE (07:25)
[2019-11-11] MEDS ORDERED: Lidocaine 1% 20 ML MDV ONE (07:26)
--- NOTE | 2019-11-11 07:36 | PCM.PREANE ---
Preanesthetic Assessment - Anesthesia/Transfusion/Family Hx Anesthesia History: Prior Anesthesia Without Reaction Family History of Anesthesia Reaction: No Transfusion History: No Prior Transfusion(s) - Physical Assessment Vital Signs: Last Vital Signs Temp 97.0 F 11/11/19 06:50 Pulse 72 11/11/19 06:50 Resp 16 11/11/19 06:50 BP 125/69 11/11/19 06:50 Pulse Ox 95 11/11/19 06:50 Height: 5 ft 4 in Weight: 82.1 kg ASA Class: 4 Mental Status: Alert & Oriented x3 Airway Class: Mallampati = 2 ROM/Head Extension: Full Lungs: Clear to Auscultation, Normal Respiratory Effort Cardiovascular: Regular Rate, Regular Rhythm - Lab Values: Laboratory Last Values POC Glucose 154 mg/dL (60-110) H 11/11/19 06:59 - Allergies Allergies/Adverse Reactions: Allergies Allergy/AdvReac Type Severity Reaction Status Date / Time metal Allergy Other Uncoded 11/11/19 07:21 - Blood Blood Available: No - Anesthesia Plan Pre-Op Medication Ordered: None - Acknowledgements Anesthesia Type Planned: MAC Pt an Appropriate Candidate for the Planned Anesthesia: Yes Alternatives and Risks of Anesthesia Discussed w Pt/Guardian: Yes Pt/Guardian Understands and Agrees with Anesthesia Plan: Yes Additional Comments: PMH: cardiomyopathy with reduced systolic and diastolic function, pulm htn with RVH and decreased RV function, severe COPD with hx of resp failure, CKD, atrial flutter- parox? on dig and elliquis, htn, thyroid replacement,DM@ with am glucose of 154, PLAN:anxiolysis/light MAC without drugs causing resp depression, decreased contractility or increases in pulm htn PreAnesthesia Questionnaire HEENT History: Reports: Cataract, Other (See Below) Other HEENT History: wears glasses Cardiovascular History: Reports: Afib, Heart Failure, High Cholesterol Other Cardiovascular History: hx of Atrial flutter Respiratory History: Reports: COPD, Other (See Below) Other Respiratory History: O2 dependent at 3L/min, hx of pulmonary hypertension Gastrointestinal History: Reports: None Genitourinary History: Reports: Other (See Below) Other Genitourinary History: UTI in April- became septic SHELL GRADER History: Reports: None Musculoskeletal History: Reports: Arthritis Neurological History: Reports: None Psychiatric History: Reports: None Endocrine/Metabolic History: Reports: Hypothyroidism, Obesity/BMI 30+ Other Endocrine/Metabolic History: Dyslipidemia Hematologic History: Reports: Anticoagulation Therapy Immunologic History: Reports: None Oncologic (Cancer) History: Reports: None Dermatologic History: Reports: Other (See Below) Other Dermatologic History: venous insufficiency of both lower extremities, stasis dermatitis of both legs, pre-ulcerative corn or callous, peripheral edema , artierial insufficency - Past Surgical History Head Surgeries/Procedures: Reports: None HEENT Surgical History: Reports: Cataract Surgery, Tonsillectomy Cardiovascular Surgical History: Reports: None Respiratory Surgical History: Reports: None GI Surgical History: Reports: Appendectomy Female Surgical History: Reports: Breast Biopsy Endocrine Surgical History: Reports: None Neurological Surgical History: Reports: None Musculoskeletal Surgical History: Reports: Other (See Below) Other Musculoskeletal Surgeries/Procedures:: hx of knee arthrotomy Oncologic Surgical History: Reports: None Dermatological Surgical History: Reports: None - SUBSTANCE USE Smoking Status *Q: Former Smoker Tobacco Use Within Last Twelve Months: No Recreational Drug Use History: No - HOME MEDS Home Medications: Home Meds Furosemide [Lasix] 40 mg PO BID PRN 01/28/19 [History] Levothyroxine Sodium 75 mcg PO QAM 01/28/19 [History] allopurinoL [Zyloprim] 100 mg PO DAILY 01/28/19 [History] Apixaban [Eliquis] 5 mg PO BID 07/08/19 [History] Digoxin 0.125 mg PO QAM 07/08/19 [History] Fluticasone/Salmeterol [Advair 500-50] 1 puff INH BID 07/08/19 [History] Potassium Chloride [Klor-Con 10] 20 meq PO BID 07/08/19 [History] atorvaSTATin [Lipitor] 10 mg PO DAILY 07/08/19 [History] metFORMIN [Glucophage XR] 500 mg PO BID 07/08/19 [History] Albuterol Sulfate 2.5 mg NEB Q6H 11/04/19 [History] Ascorbic Acid [Vitamin C] 1,000 mg PO DAILY 11/04/19 [History] Calcium Carbonate/Vitamin D3 [Calcium 600 + Vit D 200] 2 tab PO DAILY 11/04/19 [ History] Multivit-Min/FA/Lycopene/Lut [Abc Plus Tablet] 1 tab PO QAM 11/04/19 [History] Nystatin [Nyamyc] 1 dose TOP DAILY PRN 11/04/19 [History] Umeclidinium [place] [Incruse Ellipta*] 1 puff INH QAM 11/04/19 [History] Yeast,Dried (S. Cerevisiae) [Harry's Yeast] 11 gm PO DAILY 11/04/19 [History] - CURRENT (IN HOUSE) MEDS Current Meds: Current Medications Discontinued Medications Bupivacaine HCl (Marcaine 0.5%) Confirm Administered Dose 30 ml .ROUTE .STK-MED ONE Stop: 11/11/19 07:26 Lidocaine HCl (Xylocaine 1%) Confirm Administered Dose 20 ml .ROUTE .STK-MED ONE Stop: 11/11/19 07:27 Midazolam HCl (Versed 1 Mg/Ml) Confirm Administered Dose 2 mg .ROUTE .STK-MED ONE Stop: 11/11/19 07:05 Propofol (Diprivan 20 Ml) Confirm Administered Dose 200 mg .ROUTE .STK-MED ONE Stop: 11/11/19 07:05
[2019-11-11] MEDS ORDERED: Acetaminophen 325 MG Tab PO PRN (08:36)
--- NOTE | 2019-11-11 08:39 | PCM.OPNOTE ---
- General Post-Op/Procedure Note Date of Surgery/Procedure: 11/11/19 Operative Procedure(s): Excision 1 cm nodular, left wrist lesion with 1 mm margin and 3 cm primary closure Pre Op Diagnosis: New-onset nodular left wrist lesion Post-Op Diagnosis: Same Anesthesia Technique: Local, MAC (ASA IV) Primary Surgeon: Kraig Stauffer Fluid Replacement, Intraop: 5 EBL in mLs: 100 Condition: Good Free Text/Narrative:: Intake & Output 11/10/19 11/11/19 11/11/19 19:59 03:59 11:59 Intake Total 300 Balance 300 DICTATION [id number]
[2019-11-11] MEDS ORDERED: Lactated Ringers 1,000 ML IV SCH (08:45)
--- NOTE | 2019-11-11 08:49 | PCM.POSTAN ---
POST ANESTHESIA ASSESSMENT - MENTAL STATUS Mental Status: Alert, Oriented - VITAL SIGNS Vital Signs: Last Vital Signs Temp 97.0 F 11/11/19 08:23 Pulse 65 11/11/19 08:33 Resp 20 11/11/19 08:33 BP 148/64 H 11/11/19 08:33 Pulse Ox 92 L 11/11/19 08:33 - RESPIRATORY Respiratory Status: Respiratory Rate WNL, Airway Patent, O2 Saturation Stable - CARDIOVASCULAR CV Status: Pulse Rate WNL, Blood Pressure Stable - GASTROINTESTINAL GI Status: No Symptoms - POST OP HYDRATION Hydration Status: Adequate & Stable
--- NOTE | 2019-11-11 08:49 | PCM48HPAN ---
Post Anesthesia Note - EVALUATION WITHIN 48HRS OF ANESTHETIC Vital Signs in Normal Range: Yes Patient Participated in Evaluation: Yes Respiratory Function Stable: Yes Airway Patent: Yes Cardiovascular Function Stable: Yes Hydration Status Stable: Yes Pain Control Satisfactory: Yes Nausea and Vomiting Control Satisfactory: Yes Mental Status Recovered: Yes Vital Signs: Last Vital Signs Temp 97.0 F 11/11/19 08:23 Pulse 65 11/11/19 08:33 Resp 20 11/11/19 08:33 BP 148/64 H 11/11/19 08:33 Pulse Ox 92 L 11/11/19 08:33
--- NOTE | 2019-11-11 12:46 | OR ---
SURGEON: Kraig Stauffer M.D. DATE OF PROCEDURE: 11/11/2019 PROCEDURE PERFORMED: Excision of 1-cm nodular left wrist mass. PRIMARY SURGEON: Kraig Stauffer M.D. ANESTHESIA: Local MAC. ASA CLASSIFICATION: IV. PREOPERATIVE DIAGNOSIS: New-onset left wrist mass. POSTOPERATIVE DIAGNOSIS: New-onset left wrist mass. ESTIMATED BLOOD LOSS: 5 mL. INTRAOPERATIVE FLUID REPLACEMENT: 100 mL of crystalloid. DESCRIPTION OF PROCEDURE: The patient was taken to the operating room and placed on the operating table in the supine position. The surgical site had been marked prior to the patient entering the operating room. The surgical site was prepped with Betadine solution and sterile drapes were applied. The skin underlying the lesion was infiltrated with 4 mL of 1% Xylocaine and 1 mL of 0.5% Marcaine solution. An elliptical excision was carried out with a 1-mm margin. The specimen was removed and sent for histologic analysis. The wound was inspected for hemostasis and bleeding sites were electrocoagulated. The incision was then closed in a single layer with interrupted 4-0 nylon. Pressure was held for approximately 3 minutes. There was no further oozing. The wound was then dressed with Xeroform gauze, 4x4s, and a 3 inch Jhon. The patient tolerated the procedure well. Sponge, needle, and instrument counts were all correct. The patient was taken to the recovery room in stable condition. FARHANA MAGALLANES /[id number]
== END 2019-11-11 09:49 | disposition home or self-care (01) ==
LOC: MW.SDS 06:29
PROVIDERS: ATTEND Surgery
DX: D18.01 Hemangioma of skin and subcutaneous tissue (principal); M19.90 Unspecified osteoarthritis, unspecified site; J44.9 Chronic obstructive pulmonary disease, unspecified; I11.0 Hypertensive heart disease with heart failure; I50.30 Unspecified diastolic (congestive) heart failure; E11.9 Type 2 diabetes mellitus without complications; E78.00 Pure hypercholesterolemia, unspecified; E03.9 Hypothyroidism, unspecified; E66.9 Obesity, unspecified; Z91.048 Other nonmedicinal substance allergy status; Z79.899 Other long term (current) drug therapy; Z79.01 Long term (current) use of anticoagulants; Z87.891 Personal history of nicotine dependence; Z68.31 Body mass index [BMI] 31.0-31.9, adult
CPT/HCPCS: 11402; 12031; 82962; J2001; J2250; J2704; J3490; 88305

== ENCOUNTER 2022-04-16 09:08 | Emergency (ER) | payer MEDICARE, OTHER | END 2022-04-16 10:26 | disposition home or self-care (01) | LOC: MW.ED 09:08 | DX: N30.00 Acute cystitis without hematuria (principal); J44.9 Chronic obstructive pulmonary disease, unspecified; I48.91 Unspecified atrial fibrillation; I11.0 Hypertensive heart disease with heart failure; I50.9 Heart failure, unspecified; E78.00 Pure hypercholesterolemia, unspecified; M10.9 Gout, unspecified; E03.9 Hypothyroidism, unspecified; E66.9 Obesity, unspecified; Z68.29 Body mass index [BMI] 29.0-29.9, adult; Z88.2 Allergy status to sulfonamides; Z91.048 Other nonmedicinal substance allergy status; Z88.8 Allergy status to other drugs, medicaments and biological substances; Z79.899 Other long term (current) drug therapy | CPT/HCPCS: 81001; 99283 ==

== ENCOUNTER 2022-09-27 15:50 | Inpatient (IN) | payer MEDICARE, OTHER ==
[2022-09-27] MEDS ORDERED: Furosemide 40 MG/4 ML VIAL IVPUSH STA (16:43)
[2022-09-27 17:13] LABS: CARBON DIOXIDE,CO2 32.1 mmol/L (21.0-32.0); POTASSIUM,K 5.4 mmol/L (3.5-5.1)
[2022-09-27] MEDS ORDERED: Furosemide 40 MG/4 ML VIAL IVPUSH ONE (18:17)
[2022-09-27] MEDS ORDERED: Ondansetron 4 MG/2 ML SDV IVPUSH PRN (22:07)
[2022-09-27] MEDS ORDERED: Acetaminophen 325 MG Tab PO PRN (22:07)
[2022-09-27] MEDS ORDERED: Glucagon,Human Recombinant 1 MG Vial IM PRN (22:14)
[2022-09-27] MEDS ORDERED: 50% Dextrose in Water 50 ML Syringe IVPUSH PRN (22:14)
[2022-09-27] MEDS: Pantoprazole 40 MG in Sodium Chloride 0.9% 10 ML IVPUSH SCH (23:08)
[2022-09-27] MEDS: Furosemide 40 MG/4 ML VIAL IVPUSH SCH (23:08)
[2022-09-28] MEDS ORDERED: Albuterol/Ipratropium 3.0-0.5 MG/3 ML Neb Soln NEB PRN (00:39)
[2022-09-28] MEDS ORDERED: Albuterol/Ipratropium 3.0-0.5 MG/3 ML Neb Soln NEB SCH (02:00)
[2022-09-28] MEDS: Insulin Aspart 100 Units/ML 3 ML Pen SUBCUT SCH ×3 (06:35→19:01)
[2022-09-28] MEDS: Levothyroxine 75 MCG Tab PO SCH (06:35)
[2022-09-28 06:59] LABS: CARBON DIOXIDE,CO2 34.8 mmol/L (21.0-32.0); POTASSIUM,K 4.2 mmol/L (3.5-5.1)
[2022-09-28] MEDS ORDERED: Magnesium Sulfate/Water 2 GM in Premix Bag 1 BAG IV ONE (07:32)
[2022-09-28] MEDS: Fluticasone/Salmeterol 500-50 MCG Inhalation Powder 14/Diskus INH SCH ×2 (08:36→20:26)
[2022-09-28] MEDS: Allopurinol 100 MG Tab PO SCH (08:41)
[2022-09-28] MEDS: Digoxin 125 MCG Tab PO SCH (08:41)
[2022-09-28] MEDS: Apixaban 5 MG Tab PO SCH ×2 (08:42→20:26)
[2022-09-28] MEDS: Furosemide 40 MG/4 ML VIAL IVPUSH SCH ×2 (08:43→20:27)
[2022-09-28] MEDS ORDERED: atorvaSTATin 20 MG Tab PO SCH (09:00)
[2022-09-28] MEDS: atorvaSTATin 10 MG Tab PO SCH (20:27)
[2022-09-28] MEDS: Pantoprazole 40 MG in Sodium Chloride 0.9% 10 ML IVPUSH SCH (23:04)
[2022-09-29] MEDS: Insulin Aspart 100 Units/ML 3 ML Pen SUBCUT SCH ×3 (06:36→17:09)
[2022-09-29] MEDS: Levothyroxine 75 MCG Tab PO SCH (06:36)
[2022-09-29 07:06] LABS: CARBON DIOXIDE,CO2 37.9 mmol/L (21.0-32.0); POTASSIUM,K 3.6 mmol/L (3.5-5.1)
[2022-09-29] MEDS: Digoxin 125 MCG Tab PO SCH (08:22)
[2022-09-29] MEDS: Apixaban 5 MG Tab PO SCH ×2 (08:23→21:22)
[2022-09-29] MEDS: Allopurinol 100 MG Tab PO SCH (08:23)
[2022-09-29] MEDS: Fluticasone/Salmeterol 500-50 MCG Inhalation Powder 14/Diskus INH SCH ×2 (08:24→21:21)
[2022-09-29] MEDS: Furosemide 40 MG/4 ML VIAL IVPUSH SCH (08:26)
[2022-09-29] MEDS ORDERED: Magnesium Sulfate/Water 2 GM in Premix Bag 1 BAG IV ONE (09:43)
[2022-09-29] MEDS ORDERED: Levothyroxine 75 MCG Tab PO SCH (11:00)
[2022-09-29] MEDS ORDERED: Sodium Chloride 0.9% 2.5 ML Syringe FLUSH PRN (13:22)
[2022-09-29] MEDS ORDERED: Sodium Chloride 0.9% 10 ML Syringe FLUSH PRN (13:22)
[2022-09-29] MEDS: Lactated Ringers 500 ML IV SCH ×2 (13:34→17:05)
[2022-09-29] MEDS ORDERED: Lactated Ringers 500 ML IV SCH (17:00)
[2022-09-29] MEDS ORDERED: atorvaSTATin 10 MG Tab PO SCH (21:00)
[2022-09-29] MEDS: atorvaSTATin 10 MG Tab PO SCH (21:22)
[2022-09-29] MEDS: Pantoprazole 40 MG in Sodium Chloride 0.9% 10 ML IVPUSH SCH (21:22)
[2022-09-30] MEDS: Insulin Aspart 100 Units/ML 3 ML Pen SUBCUT SCH ×3 (06:36→17:48)
[2022-09-30] MEDS: Levothyroxine 75 MCG Tab PO SCH (06:37)
[2022-09-30 07:00] LABS: CARBON DIOXIDE,CO2 36.5 mmol/L (21.0-32.0); POTASSIUM,K 4.3 mmol/L (3.5-5.1)
[2022-09-30] MEDS: Apixaban 5 MG Tab PO SCH ×2 (09:14→21:00)
[2022-09-30] MEDS: Allopurinol 100 MG Tab PO SCH (09:14)
[2022-09-30] MEDS: Fluticasone/Salmeterol 500-50 MCG Inhalation Powder 14/Diskus INH SCH ×2 (09:15→21:00)
[2022-09-30] MEDS: Digoxin 125 MCG Tab PO SCH (09:15)
[2022-09-30] MEDS: atorvaSTATin 10 MG Tab PO SCH (21:00)
[2022-09-30] MEDS: Pantoprazole 40 MG in Sodium Chloride 0.9% 10 ML IVPUSH SCH (21:15)
[2022-10-01] MEDS: Levothyroxine 75 MCG Tab PO SCH (06:48)
[2022-10-01] MEDS: Insulin Aspart 100 Units/ML 3 ML Pen SUBCUT SCH ×3 (07:34→17:46)
[2022-10-01 07:46] LABS: CARBON DIOXIDE,CO2 37.1 mmol/L (21.0-32.0); POTASSIUM,K 4.2 mmol/L (3.5-5.1)
[2022-10-01] MEDS: Digoxin 125 MCG Tab PO SCH (09:30)
[2022-10-01] MEDS: Fluticasone/Salmeterol 500-50 MCG Inhalation Powder 14/Diskus INH SCH ×2 (09:30→21:10)
[2022-10-01] MEDS: Allopurinol 100 MG Tab PO SCH (09:30)
[2022-10-01] MEDS: Apixaban 5 MG Tab PO SCH ×2 (09:30→21:10)
[2022-10-01] MEDS ORDERED: Polyethylene Glycol 3350 Powder 17 GM Packet PO ONE (10:41)
[2022-10-01] MEDS ORDERED: Losartan 50 MG Tab PO SCH (11:30)
[2022-10-01] MEDS: cefTRIAXone 1 GM in Sodium Chloride 0.9% 50 ML IV SCH (16:10)
[2022-10-01] MEDS: Furosemide 20 MG/2 ML VIAL IVPUSH ONE ×2 (16:10→18:22)
[2022-10-01] MEDS ORDERED: Phenazopyridine 200 MG Tab PO ONE (21:00)
[2022-10-01] MEDS: atorvaSTATin 10 MG Tab PO SCH (21:09)
[2022-10-01] MEDS: Pantoprazole 40 MG in Sodium Chloride 0.9% 10 ML IVPUSH SCH (21:15)
[2022-10-02] MEDS: Levothyroxine 75 MCG Tab PO SCH (06:35)
[2022-10-02 07:17] LABS: POTASSIUM,K 4.2 mmol/L (3.5-5.1)
[2022-10-02] MEDS: Insulin Aspart 100 Units/ML 3 ML Pen SUBCUT SCH ×3 (07:39→17:37)
[2022-10-02] MEDS: Fluticasone/Salmeterol 500-50 MCG Inhalation Powder 14/Diskus INH SCH ×2 (08:16→22:22)
[2022-10-02] MEDS: Apixaban 5 MG Tab PO SCH ×2 (08:17→21:16)
[2022-10-02] MEDS: Allopurinol 100 MG Tab PO SCH (08:17)
[2022-10-02] MEDS: Digoxin 125 MCG Tab PO SCH (08:17)
[2022-10-02] MEDS ORDERED: Glycerin 2.8 GM/2.7 ML 4ML Supp RECTAL ONE (13:00)
[2022-10-02] MEDS: cefTRIAXone 1 GM in Sodium Chloride 0.9% 50 ML IV SCH (14:56)
[2022-10-02] MEDS: atorvaSTATin 10 MG Tab PO SCH (21:16)
[2022-10-02] MEDS: Pantoprazole 40 MG in Sodium Chloride 0.9% 10 ML IVPUSH SCH (21:16)
[2022-10-03] MEDS: Levothyroxine 75 MCG Tab PO SCH (06:30)
[2022-10-03 07:07] LABS: CARBON DIOXIDE,CO2 35.4 mmol/L (21.0-32.0); POTASSIUM,K 4.2 mmol/L (3.5-5.1)
[2022-10-03] MEDS: Insulin Aspart 100 Units/ML 3 ML Pen SUBCUT SCH ×3 (07:30→16:23)
[2022-10-03] MEDS: Fluticasone/Salmeterol 500-50 MCG Inhalation Powder 14/Diskus INH SCH ×2 (08:37→21:22)
[2022-10-03] MEDS: Allopurinol 100 MG Tab PO SCH (08:37)
[2022-10-03] MEDS: Digoxin 125 MCG Tab PO SCH (08:38)
[2022-10-03] MEDS: Apixaban 5 MG Tab PO SCH ×2 (08:38→21:22)
[2022-10-03] MEDS ORDERED: Furosemide 20 MG/2 ML VIAL IVPUSH ONE (11:15)
[2022-10-03] MEDS: cefTRIAXone 1 GM in Sodium Chloride 0.9% 50 ML IV SCH (16:29)
[2022-10-03] MEDS: atorvaSTATin 10 MG Tab PO SCH (21:22)
[2022-10-04] MEDS: Levothyroxine 75 MCG Tab PO SCH (06:41)
[2022-10-04 06:52] LABS: CARBON DIOXIDE,CO2 34.3 mmol/L (21.0-32.0); POTASSIUM,K 4.2 mmol/L (3.5-5.1)
[2022-10-04] MEDS ORDERED: Pantoprazole 40 MG Tab.CR PO SCH (07:30)
[2022-10-04] MEDS: Insulin Aspart 100 Units/ML 3 ML Pen SUBCUT SCH ×2 (07:30→11:30)
[2022-10-04] MEDS: Apixaban 5 MG Tab PO SCH (08:51)
[2022-10-04] MEDS: Allopurinol 100 MG Tab PO SCH (08:51)
[2022-10-04] MEDS: Digoxin 125 MCG Tab PO SCH (08:51)
[2022-10-04] MEDS: Fluticasone/Salmeterol 500-50 MCG Inhalation Powder 14/Diskus INH SCH (08:53)
[2022-10-04] MEDS ORDERED: cefTRIAXone 1 GM in Sodium Chloride 0.9% 50 ML IV SCH (12:00)
== END 2022-10-04 14:55 | disposition home health service (06) | DRG 291 ==
LOC: MW.ED 15:50 → MW.MS 19:21
PROVIDERS: ADMIT Student in an Organized Health Care Education/Training Program; ATTEND Student in an Organized Health Care Education/Training Program
DX: I11.0 Hypertensive heart disease with heart failure (principal); I50.9 Heart failure, unspecified; I50.43 Acute on chronic combined systolic (congestive) and diastolic (congestive) heart failure; R09.02 Hypoxemia; J96.21 Acute and chronic respiratory failure with hypoxia; N30.01 Acute cystitis with hematuria; J90 Pleural effusion, not elsewhere classified; I27.20 Pulmonary hypertension, unspecified; Z66 Do not resuscitate; J44.9 Chronic obstructive pulmonary disease, unspecified; E11.9 Type 2 diabetes mellitus without complications; I48.91 Unspecified atrial fibrillation; E78.2 Mixed hyperlipidemia; Z88.8 Allergy status to other drugs, medicaments and biological substances; I95.9 Hypotension, unspecified; Z20.822 Contact with and (suspected) exposure to COVID-19; E78.00 Pure hypercholesterolemia, unspecified; M19.90 Unspecified osteoarthritis, unspecified site; M10.9 Gout, unspecified; E03.9 Hypothyroidism, unspecified; E66.9 Obesity, unspecified; I87.2 Venous insufficiency (chronic) (peripheral); I77.1 Stricture of artery; Z86.19 Personal history of other infectious and parasitic diseases; Z98.49 Cataract extraction status, unspecified eye; Z79.01 Long term (current) use of anticoagulants; Z79.899 Other long term (current) drug therapy; Z79.890 Hormone replacement therapy; Z79.84 Long term (current) use of oral hypoglycemic drugs; Z88.2 Allergy status to sulfonamides; Z88.1 Allergy status to other antibiotic agents; Z91.09 Other allergy status, other than to drugs and biological substances; Z87.440 Personal history of urinary (tract) infections; Z90.89 Acquired absence of other organs; Z90.49 Acquired absence of other specified parts of digestive tract; Z87.891 Personal history of nicotine dependence; E87.8 Other disorders of electrolyte and fluid balance, not elsewhere classified; Z68.27 Body mass index [BMI] 27.0-27.9, adult
CPT/HCPCS: 36415; 71045 ×2; 80053; 81001; 83880; 84484; 85025; 85610; 85730; 93005; 96374; 99285; J1940; U0002; 51702; 71250; 71250-26; 80048; 82947; 83735; 84100; 87086; 93306; 94660; 97163-GP; 97530-GP; A9270-GY; C9113; J0696; J1815-GY; J3475; J3490; J7120

== ENCOUNTER 2022-12-06 13:57 | Inpatient (IN) | payer MEDICARE, OTHER ==
[2022-12-06] MEDS ORDERED: Sodium Chloride 0.9% 20 ML SDV IV PRN (14:37)
[2022-12-06] MEDS ORDERED: Sodium Chloride 0.9% 10 ML Syringe FLUSH PRN (14:37)
[2022-12-06] MEDS ORDERED: Sodium Chloride 0.9% 2.5 ML Syringe FLUSH PRN (14:37)
[2022-12-06 15:10] LABS: CARBON DIOXIDE,CO2 33.2 mmol/L (21.0-32.0); POTASSIUM,K 5.5 mmol/L (3.5-5.1)
[2022-12-06] MEDS ORDERED: Furosemide 40 MG in Sodium Chloride 0.9% 50 ML IV ONE (15:27)
[2022-12-06] MEDS ORDERED: Furosemide 40 MG/4 ML VIAL IVPUSH ONE (15:39)
[2022-12-06 15:54] LABS: CORONAVIRUS COVID-19 NAA NEGATIVE (NEGATIVE); INFLUENZA A NAA NEGATIVE (NEGATIVE); INFLUENZA B NAA NEGATIVE (NEGATIVE); RESPIRATORY SYNCYTIAL VIR NAA NEGATIVE (NEGATIVE)
[2022-12-06] MEDS ORDERED: Acetaminophen 325 MG Tab PO PRN (18:13)
[2022-12-06] MEDS ORDERED: Ondansetron 4 MG/2 ML SDV IVPUSH PRN (18:13)
[2022-12-06] MEDS ORDERED: Albuterol/Ipratropium 3.0-0.5 MG/3 ML Neb Soln NEB PRN (18:13)
[2022-12-06] MEDS ORDERED: Polyethylene Glycol 3350 Powder 17 GM Packet PO PRN (18:13)
[2022-12-06] MEDS ORDERED: Glucagon,Human Recombinant 1 MG Vial IM PRN (18:17)
[2022-12-06] MEDS ORDERED: 50% Dextrose in Water 50 ML Syringe IVPUSH PRN (18:17)
[2022-12-07 05:42] LABS: CARBON DIOXIDE,CO2 35.5 mmol/L (21.0-32.0); POTASSIUM,K 4.8 mmol/L (3.5-5.1)
[2022-12-07] MEDS: Insulin Aspart 100 Units/ML 3 ML Pen SUBCUT SCH ×3 (06:50→17:30)
[2022-12-07] MEDS: Furosemide 40 MG/4 ML VIAL IVPUSH SCH ×2 (08:13→14:54)
[2022-12-07] MEDS ORDERED: Digoxin 125 MCG Tab PO SCH (09:00)
[2022-12-07] MEDS: Levothyroxine 75 MCG Tab PO SCH (09:27)
[2022-12-07] MEDS: Empagliflozin 10 MG Tab PO SCH (09:27)
[2022-12-07] MEDS: Apixaban 5 MG Tab PO SCH ×2 (09:27→20:40)
[2022-12-07] MEDS: Digoxin 125 MCG Tab PO SCH (09:33)
[2022-12-07] MEDS: Tiotropium Bromide 4 GM Inhalation Spray (2.5mcg/1 dose; 10 doses) INH SCH (09:34)
[2022-12-07] MEDS: atorvaSTATin 10 MG Tab PO SCH (20:40)
[2022-12-08] MEDS: Levothyroxine 75 MCG Tab PO SCH (06:29)
[2022-12-08] MEDS: Insulin Aspart 100 Units/ML 3 ML Pen SUBCUT SCH ×3 (06:29→17:24)
[2022-12-08 06:49] LABS: POTASSIUM,K 4.1 mmol/L (3.5-5.1)
[2022-12-08] MEDS: Apixaban 5 MG Tab PO SCH ×2 (08:37→20:35)
[2022-12-08] MEDS: Furosemide 40 MG/4 ML VIAL IVPUSH SCH ×2 (08:37→13:59)
[2022-12-08] MEDS: Empagliflozin 10 MG Tab PO SCH (08:38)
[2022-12-08] MEDS: Digoxin 125 MCG Tab PO SCH (08:38)
[2022-12-08] MEDS: Tiotropium Bromide 4 GM Inhalation Spray (2.5mcg/1 dose; 10 doses) INH SCH (10:27)
[2022-12-08] MEDS: atorvaSTATin 10 MG Tab PO SCH (20:36)
[2022-12-09] MEDS: Levothyroxine 75 MCG Tab PO SCH (06:36)
[2022-12-09] MEDS: Insulin Aspart 100 Units/ML 3 ML Pen SUBCUT SCH ×3 (07:26→16:36)
[2022-12-09] MEDS: Furosemide 40 MG/4 ML VIAL IVPUSH SCH ×2 (07:39→14:00)
[2022-12-09 08:11] LABS: CARBON DIOXIDE,CO2 35.3 mmol/L (21.0-32.0); POTASSIUM,K 3.8 mmol/L (3.5-5.1)
[2022-12-09] MEDS: Digoxin 125 MCG Tab PO SCH (09:27)
[2022-12-09] MEDS: Empagliflozin 10 MG Tab PO SCH (09:27)
[2022-12-09] MEDS: Apixaban 5 MG Tab PO SCH ×2 (09:28→20:22)
[2022-12-09] MEDS: Tiotropium Bromide 4 GM Inhalation Spray (2.5mcg/1 dose; 10 doses) INH SCH (09:28)
[2022-12-09] MEDS: atorvaSTATin 10 MG Tab PO SCH (20:22)
[2022-12-09] MEDS ORDERED: Morphine 2 MG/ML SYRINGE IVPUSH ONE (21:13)
[2022-12-10 06:02] LABS: CARBON DIOXIDE,CO2 38.9 mmol/L (21.0-32.0)
[2022-12-10] MEDS: Levothyroxine 75 MCG Tab PO SCH (06:52)
[2022-12-10] MEDS: Insulin Aspart 100 Units/ML 3 ML Pen SUBCUT SCH ×3 (06:52→16:57)
[2022-12-10] MEDS: Tiotropium Bromide 4 GM Inhalation Spray (2.5mcg/1 dose; 10 doses) INH SCH (08:30)
[2022-12-10] MEDS: Empagliflozin 10 MG Tab PO SCH (08:30)
[2022-12-10] MEDS: Digoxin 125 MCG Tab PO SCH (08:30)
[2022-12-10] MEDS: Apixaban 5 MG Tab PO SCH ×2 (08:30→20:05)
[2022-12-10] MEDS: Furosemide 40 MG/4 ML VIAL IVPUSH SCH ×2 (08:30→13:33)
[2022-12-10] MEDS: atorvaSTATin 10 MG Tab PO SCH (20:05)
[2022-12-11] MEDS: Levothyroxine 75 MCG Tab PO SCH ×2 (06:19→07:29)
[2022-12-11 06:53] LABS: CARBON DIOXIDE,CO2 39.4 mmol/L (21.0-32.0); POTASSIUM,K 3.6 mmol/L (3.5-5.1)
[2022-12-11] MEDS: Insulin Aspart 100 Units/ML 3 ML Pen SUBCUT SCH ×3 (07:57→17:06)
[2022-12-11] MEDS: Furosemide 40 MG/4 ML VIAL IVPUSH SCH (08:45)
[2022-12-11] MEDS: Apixaban 5 MG Tab PO SCH ×2 (08:45→20:12)
[2022-12-11] MEDS: Digoxin 125 MCG Tab PO SCH (08:45)
[2022-12-11] MEDS: Empagliflozin 10 MG Tab PO SCH (08:45)
[2022-12-11] MEDS: Tiotropium Bromide 4 GM Inhalation Spray (2.5mcg/1 dose; 10 doses) INH SCH (08:46)
[2022-12-11] MEDS: atorvaSTATin 10 MG Tab PO SCH (20:11)
[2022-12-11] MEDS: Furosemide 20 MG Tab PO SCH (20:12)
[2022-12-12] MEDS: Levothyroxine 75 MCG Tab PO SCH (06:34)
[2022-12-12] MEDS: Insulin Aspart 100 Units/ML 3 ML Pen SUBCUT SCH ×2 (06:36→11:19)
[2022-12-12 07:28] LABS: CARBON DIOXIDE,CO2 39.9 mmol/L (21.0-32.0); POTASSIUM,K 3.8 mmol/L (3.5-5.1)
[2022-12-12] MEDS: Apixaban 5 MG Tab PO SCH (08:24)
[2022-12-12] MEDS: Furosemide 20 MG Tab PO SCH (08:24)
[2022-12-12] MEDS: Empagliflozin 10 MG Tab PO SCH (08:24)
[2022-12-12] MEDS: Tiotropium Bromide 4 GM Inhalation Spray (2.5mcg/1 dose; 10 doses) INH SCH (08:25)
[2022-12-12] MEDS: Digoxin 125 MCG Tab PO SCH (08:25)
== END 2022-12-12 12:10 | disposition home health service (06) | DRG 291 ==
LOC: MW.ED 13:57 → MW.MS 16:17
PROVIDERS: ADMIT Internal Medicine; ATTEND Internal Medicine
DX: I11.0 Hypertensive heart disease with heart failure (principal); I50.43 Acute on chronic combined systolic (congestive) and diastolic (congestive) heart failure; J96.21 Acute and chronic respiratory failure with hypoxia; N17.9 Acute kidney failure, unspecified; J44.9 Chronic obstructive pulmonary disease, unspecified; E78.5 Hyperlipidemia, unspecified; Z99.81 Dependence on supplemental oxygen; I48.91 Unspecified atrial fibrillation; I45.10 Unspecified right bundle-branch block; E03.9 Hypothyroidism, unspecified; Z66 Do not resuscitate; Z20.822 Contact with and (suspected) exposure to COVID-19; E66.9 Obesity, unspecified; Z79.84 Long term (current) use of oral hypoglycemic drugs; E78.00 Pure hypercholesterolemia, unspecified; M10.9 Gout, unspecified; M19.90 Unspecified osteoarthritis, unspecified site; E11.9 Type 2 diabetes mellitus without complications; E78.2 Mixed hyperlipidemia; I27.20 Pulmonary hypertension, unspecified; Z88.2 Allergy status to sulfonamides; Z88.1 Allergy status to other antibiotic agents; Z88.8 Allergy status to other drugs, medicaments and biological substances; Z79.890 Hormone replacement therapy; Z79.899 Other long term (current) drug therapy
CPT/HCPCS: 0241U; 36415; 36600; 71045; 80048; 80053; 81001; 82803; 82947; 83735; 83880; 84484; 85025; 85610; 93005; 96374; 97161; 99285; 93010; A9270-GY; J1815-GY; J1940; J2270; J3490

== ENCOUNTER 2023-01-25 02:20 | Emergency (ER) | payer MEDICARE, OTHER ==
[~2023-01-25 02:20] MED LIST: Atropine 0.1 MG/ML 10 ML Syringe IVPUSH STA; Calcium Chloride 10% 1 GM/10 ML Syringe IVPUSH STA; cefTRIAXone 1 GM in Sodium Chloride 0.9% 50 ML IV STA; methylPREDNISolone Sodium Succinate 40 MG/1 ML SDV IVPUSH STA
[2023-01-25] MEDS ORDERED: Albuterol/Ipratropium 3.0-0.5 MG/3 ML Neb Soln ONE (02:29)
[2023-01-25] MEDS ORDERED: cefTRIAXone 1 GM AdvVial IV ONE (02:35)
[2023-01-25] MEDS ORDERED: Sodium Chloride 0.9% 50 ML ONE (02:35)
[2023-01-25] MEDS ORDERED: methylPREDNISolone Sodium Succinate 40 MG/1 ML SDV ONE (02:35)
[2023-01-25] MEDS ORDERED: Albuterol 0.083% 2.5 MG/3 ML Neb Soln NEB ONE (04:15)
[2023-01-25] MEDS ORDERED: 50% Dextrose in Water 50 ML Syringe IVPUSH STA (04:15)
[2023-01-25] MEDS ORDERED: 50% Dextrose in Water 50 ML Syringe ONE (04:23)
[2023-01-25] MEDS ORDERED: Albuterol 0.083% 2.5 MG/3 ML Neb Soln ONE (04:24)
[2023-01-25] MEDS ORDERED: Insulin Regular, Human 100 Units/ML 10 ML Vial ONE (04:26)
[2023-01-25] MEDS ORDERED: DIGOXIN IMMUNE FAB IV ONE (04:45)
[2023-01-25] MEDS ORDERED: SODIUM CHLORIDE 0.9% IV ONE (04:45)
[2023-01-25] MEDS ORDERED: Sodium Bicarbonate 150 MEQ in Dextrose 5% in Water 1,000 ML IV SCH ×2 (05:00)
[2023-01-25] MEDS ORDERED: Nitroglycerin 0.4 MG Tab.SL SL STA ×2 (05:19→05:57)
[2023-01-25] MEDS ORDERED: Nitroglycerin 0.4 MG Tab.SL ONE (05:21)
[2023-01-25] MEDS ORDERED: Albuterol/Ipratropium 3.0-0.5 MG/3 ML Neb Soln NEB STA (05:41)
[2023-01-25] MEDS ORDERED: 50% Dextrose in Water 50 ML Syringe IVPUSH PRN (05:46)
[2023-01-25] MEDS ORDERED: Insulin Regular, Human 100 Units/ML 10 ML Vial IVPUSH STA (05:46)
[2023-01-25] MEDS ORDERED: Glucagon,Human Recombinant 1 MG Vial IM PRN (05:46)
[2023-01-25] MEDS ORDERED: Furosemide 40 MG/4 ML VIAL IVPUSH ONE ×2 (06:02→07:45)
[2023-01-25 06:36] LABS: CARBON DIOXIDE,CO2 26.6 mmol/L (21.0-32.0)
[2023-01-25 06:47] LABS: POTASSIUM,K 7.6 mmol/L (3.5-5.1)
[2023-01-25] MEDS ORDERED: Furosemide 40 MG in Sodium Chloride 0.9% 50 ML IV STA (07:09)
[2023-01-25 07:27] LABS: CARBON DIOXIDE,CO2 26.4 mmol/L (21.0-32.0)
[2023-01-25 07:28] LABS: POTASSIUM,K 8.3 mmol/L (3.5-5.1)
== END 2023-01-25 12:00 ==
LOC: MW.ED 02:20
DX: I11.0 Hypertensive heart disease with heart failure (principal); I50.43 Acute on chronic combined systolic (congestive) and diastolic (congestive) heart failure; N17.9 Acute kidney failure, unspecified; J44.9 Chronic obstructive pulmonary disease, unspecified; E87.5 Hyperkalemia; E03.9 Hypothyroidism, unspecified; E11.9 Type 2 diabetes mellitus without complications; E78.00 Pure hypercholesterolemia, unspecified; E66.9 Obesity, unspecified; Z68.30 Body mass index [BMI] 30.0-30.9, adult; Z88.2 Allergy status to sulfonamides; Z88.1 Allergy status to other antibiotic agents; Z91.048 Other nonmedicinal substance allergy status; Z79.899 Other long term (current) drug therapy; Z79.01 Long term (current) use of anticoagulants; Z79.84 Long term (current) use of oral hypoglycemic drugs; Z90.49 Acquired absence of other specified parts of digestive tract
CPT/HCPCS: 36415; 36600; 71045; 71045-26; 74176; 74176-26; 80048; 80053; 80162; 81001; 82803; 83605; 83690; 83880; 84484; 85025; 85610; 85730; 87040; 87086; 93005; 93010; 94660; 96365; 96367; 96375; 96376; 99284; 99285-25; A9270-GY; J0461; J0696; J1162; J1815-GY; J1940; J2920; J3490; J7050; J7060; J7620-GY; U0002

== ENCOUNTER 2023-01-25 14:32 | Emergency (ER) | payer MEDICARE, OTHER ==
[2023-01-25] MEDS ORDERED: Atropine 0.1 MG/ML 10 ML Syringe IVPUSH ONE (15:12)
[2023-01-25 15:39] LABS: CARBON DIOXIDE,CO2 28.3 mmol/L (21.0-32.0)
[2023-01-25 15:47] LABS: POTASSIUM,K 7.7 mmol/L (3.5-5.1)
[2023-01-25] MEDS ORDERED: Calcium Gluconate 10% 1 GM/10 ML SDV IVPUSH ONE (15:47)
[2023-01-25] MEDS ORDERED: Sodium Polystyrene Sulfonate 15 GM/60 ML Susp 60 ML Bot PO ONE (15:49)
[2023-01-25] MEDS ORDERED: 50% Dextrose in Water 50 ML Syringe IVPUSH ONE ×2 (15:49→15:53)
[2023-01-25] MEDS ORDERED: 50% Dextrose in Water 50 ML Syringe IVPUSH PRN (15:53)
[2023-01-25] MEDS ORDERED: Albuterol 0.083% 2.5 MG/3 ML Neb Soln NEB ONE (15:53)
[2023-01-25] MEDS ORDERED: Glucagon,Human Recombinant 1 MG Vial IM PRN (15:53)
[2023-01-25] MEDS ORDERED: Insulin Regular, Human 100 Units/ML 10 ML Vial IVPUSH ONE (15:53)
[2023-01-25] MEDS ORDERED: Furosemide 20 MG/2 ML VIAL IVPUSH ONE (15:54)
[2023-01-25 18:43] LABS: CARBON DIOXIDE,CO2 28.4 mmol/L (21.0-32.0)
[2023-01-25] MEDS ORDERED: Furosemide 100 MG in Sodium Chloride 0.9% 90 ML IV STA (18:45)
== END 2023-01-25 21:34 ==
LOC: MW.ED 14:32
DX: N17.9 Acute kidney failure, unspecified (principal); I48.91 Unspecified atrial fibrillation; I11.0 Hypertensive heart disease with heart failure; I50.9 Heart failure, unspecified; E78.00 Pure hypercholesterolemia, unspecified; J44.9 Chronic obstructive pulmonary disease, unspecified; M10.9 Gout, unspecified; E11.9 Type 2 diabetes mellitus without complications; E03.9 Hypothyroidism, unspecified; E66.9 Obesity, unspecified; Z68.27 Body mass index [BMI] 27.0-27.9, adult; Z79.01 Long term (current) use of anticoagulants; Z88.2 Allergy status to sulfonamides; Z88.1 Allergy status to other antibiotic agents; Z91.048 Other nonmedicinal substance allergy status; Z79.899 Other long term (current) drug therapy; Z79.84 Long term (current) use of oral hypoglycemic drugs
CPT/HCPCS: 36415; 36600; 71045; 74176; 80048; 80053; 80162; 81001; 82803; 83605; 83690; 83735; 83880; 84484; 85025; 85610; 85730; 87040; 87086; 93005; 94660; 96365; 96375; 96376; 99285; A9270; J0461; J0610; J0696; J1162; J1940; J2920; J3490; J7050; J7060; U0002; J1815-GY; J7620-GY